=== PATIENT | male | born 1960 | race Caucasian/White ===

== ENCOUNTER 2021-10-08 12:34 | Emergency (ER) | payer OTHER, SELFPAY ==
--- NOTE | ~2021-10-08 | XR_ITS ---
EXAMINATION: XR CHEST CLINICAL INFORMATION: Dyspnea. COMPARISON: Chest 04/13/2020 TECHNIQUE: Frontal view of the chest was obtained. FINDINGS: No significant abnormality is noted involving the heart, lungs, mediastinum, bony thorax or soft tissues. XR/XR chest 1V IMPRESSION: Unremarkable chest examination.
[2021-10-08 12:47] VITALS: BP 156/69; PULSE 77; RESP 18; TEMP 37.1; O2SAT 97; BMI 22.8
--- NOTE | 2021-10-08 12:51 | ECG_ITS ---
Test Reason : dyspnea, shakes Blood Pressure : / mmHG Vent. Rate : 072 BPM Atrial Rate : 072 BPM P-R Int : 176 ms QRS Dur : 088 ms QT Int : 410 ms P-R-T Axes : 064 077 068 degrees QTc Int : 448 ms Normal sinus rhythm Normal ECG When compared with ECG of 13-APR-2020 02:44, No significant change was found Referred By: Generic ED Physician Electronically Signed By:Seamus Condon
[2021-10-08 13:32] LABS: Hematocrit 34.7 % (42.0-52.0); Hemoglobin 12.6 g/dl (14.0-18.0); Mean Corpuscular HGB Conc 36.3 g/dl (31.0-36.0); Mean Corpuscular Hemoglobin 35.3 pg (27.0-33.0); Mean Corpuscular Volume 97.2 fL (80.0-98.0); Mean Platelet Volume 10.1 fL (9.4-12.4); Platelet Count 111 X10*3/uL (160-400); Red Blood Count 3.57 X10*6/uL (4.60-5.80); Red Cell Distribution Width 13.3 % (11.0-16.0); White Blood Count 6.7 X10*3/uL (4.8-10.8)
[2021-10-08 13:45] LABS: Anion Gap 20 (12-20); Blood Urea Nitrogen 7 mg/dL (9-16); COVID-19 Test Negative (Negative); Calcium 9.3 mg/dL (8.4-10.2); Carbon Dioxide 22 mmol/L (22-29); Chloride 101 mmol/L (96-108); Creatinine Clr Calc Pharmacy 105.2; Estimated Glomerular Filt Rate > 60; Glucose Random 102 mg/dL (60-115); Potassium 3.9 mmol/L (3.3-5.1); Sodium 139 mmol/L (135-145)
[2021-10-08 13:52] LABS: Troponin-I High Sensitivity < 3.5 ng/L (<3.5-35.0)
== END 2021-10-08 21:53 | disposition left against medical advice (07) ==
LOC: HO.ED 21:39
PROVIDERS: Emergency Provider Emergency Medicine; PCP Internal Medicine Endocrinology, Diabetes & Metabolism
DX: R06.02 Shortness of breath (principal); Z20.822 Contact with and (suspected) exposure to COVID-19; I10 Essential (primary) hypertension
CPT/HCPCS: 71045; 80048; 84484; 85027; 87635; 93005; 99283